=== PATIENT | male | born 1980 | race Caucasian/White ===

== ENCOUNTER → 2017-12-29 | Outpatient (CLI) | payer OTHER ==
--- NOTE | 2017-12-29 13:37 | CT ---
EXAMINATION TYPE: CT brain wo/w con DATE OF EXAM: 12/29/2017 COMPARISON: NONE HISTORY: 37-year-old male Dizziness, giddiness, and headache TECHNIQUE: Examination was done in axial plane before and after intravenous contrast. 100 mL Isovue 300 IV contrast was administered. Coronal and sagittal reconstructions performed. CT DLP: 2318 mGycm Automated exposure control for dose reduction was used. FINDINGS: There is no evidence of acute intracranial hemorrhage, acute ischemic changes, mass, mass-effect, or extra-axial fluid collection. There is no effacement of cerebral sulci or basal subarachnoid cister ns. There is no hydrocephalus. There is no midline shift. Robles-white matter distinction is preserv ed. No enhancing intracranial lesions. Dural venous sinuses are patent. Trace mucosal thickening ethmoid air cells. Mastoid air cells well pneumatized. Orbits and globes are intact. IMPRESSION: No acute intracranial abnormality or enhancing intracranial lesion seen.
== END | disposition home or self-care (01) ==
LOC: RADCTMAIN 09:32
PROVIDERS: ATTEND Internal Medicine
DX: R42 Dizziness and giddiness (principal); R51 Headache
CPT/HCPCS: 70470; Q9967